=== PATIENT | female | born 1980 | race Caucasian/White ===

== ENCOUNTER 2020-10-03 14:03 | Inpatient (IN) | payer OTHER ==
[~2020-10-03] VITALS: Ht 167.6 cm; Wt 95.3 kg
[~2020-10-03 14:03] MED LIST: AUGMENTIN 875-1 EACH PO; CLEOCIN HCL150 MG PO; DOXYCYCLINE HY100 MG PO; KEFLEX500 MG PO; NORCO 5-325 TA1 EACH PO; ZESTORETIC 20-1 EAC1 PO; ZOFRAN ODT 4 MG4 MG PO
[2020-10-03 17:16] LABS: BUN/CREATININE RATIO 18 (0-10)
[2020-10-03 17:33] LABS: HEMOGLOBIN 12.8 gm/dl (12.3-15.3); RED BLOOD COUNT 4.45 M/UL (4.00-5.10); WHITE BLOOD COUNT 14.2 K/UL (4.5-11.0)
[2020-10-04 05:38] LABS: RED BLOOD COUNT 4.52 M/UL (4.00-5.10); WHITE BLOOD COUNT 9.9 K/UL (4.5-11.0)
[2020-10-04 06:02] LABS: BUN/CREATININE RATIO 26 (0-10)
[2020-10-04] MEDS ORDERED: TOPROL XL 25 MG25 MG PO (13:47)
[2020-10-05 04:34] LABS: BUN/CREATININE RATIO 24 (0-10)
[2020-10-06 03:13] LABS: HEMOGLOBIN 11.4 gm/dl (12.3-15.3); WHITE BLOOD COUNT 9.2 K/UL (4.5-11.0)
[2020-10-06 03:15] LABS: RED BLOOD COUNT 4.06 M/UL (4.00-5.10)
[2020-10-06 03:31] LABS: BUN/CREATININE RATIO 27 (0-10)
[2020-10-07 04:27] LABS: HEMOGLOBIN 12.2 gm/dl (12.3-15.3); RED BLOOD COUNT 4.22 M/UL (4.00-5.10); WHITE BLOOD COUNT 9.5 K/UL (4.5-11.0)
[2020-10-07 04:49] LABS: BUN/CREATININE RATIO 27 (0-10)
[2020-10-08 03:49] LABS: HEMOGLOBIN 11.5 gm/dl (12.3-15.3); RED BLOOD COUNT 4.26 M/UL (4.00-5.10); WHITE BLOOD COUNT 11.3 K/UL (4.5-11.0)
[2020-10-08 04:08] LABS: BUN/CREATININE RATIO 27 (0-10)
[2020-10-08] MEDS ORDERED: PROBIOTIC1 EAC1 PO (09:26)
[2020-10-08] MEDS ORDERED: CLEOCIN HCL300 MG PO (09:26)
[2020-10-08] MEDS ORDERED: METOPROLOL SUCC25 MG PO (09:26)
== END 2020-10-08 15:38 | disposition home or self-care (01) | DRG 603 ==
LOC: ER1 14:03 → ZEROF 18:14 → M/S 18:14
PROVIDERS: Hospitalist; Physician Assistant; ADMIT Internal Medicine Infectious Disease
DX: L03.114 Cellulitis of left upper limb (principal); I16.0 Hypertensive urgency; F17.210 Nicotine dependence, cigarettes, uncomplicated; Z91.81 History of falling; Z86.14 Personal history of Methicillin resistant Staphylococcus aureus infection; F19.10 Other psychoactive substance abuse, uncomplicated; F15.10 Other stimulant abuse, uncomplicated; F12.10 Cannabis abuse, uncomplicated; F11.10 Opioid abuse, uncomplicated; Z20.822 Contact with and (suspected) exposure to COVID-19; W45.8XXA Other foreign body or object entering through skin, initial encounter; W22.8XXA Striking against or struck by other objects, initial encounter; Y92.89 Other specified places as the place of occurrence of the external cause
CPT/HCPCS: 36415; 73110; 73130; 73200; 80048; 80053; 80202; 80307; 83605; 85025; 85027; 85610; 85652; 86140; 87040; 96365; 96366; 96368; 96375; 96376; 99284; J2543; J3370; J7030; J7050; J7070; U0002